=== PATIENT | male | born 1980 | race Caucasian/White ===

== ENCOUNTER → 2016-12-16 | Day surgery (SDC) | payer BC ==
[~2016-12-16] MED LIST: BUPIVACAINE/EPINEPHRINE 0.25% PF 10 ML VIAL ONE; CIPROFLOXACIN 400 MG PREMIX 200 ML ONE; KETOROLAC TROMETHAMINE 30 MG/ML (IVP) VIAL IV PUSH ONE; LACTATED RINGER'S 1000 ML INJ 1,000 ML ONE; LIDOCAINE 1%/EPINEPHrine 1:100,000 SOLN 20 ML VIAL ONE; MEPERIDINE HCL 25 MG/ML VIAL ONE; MIDAZOLAM HCL 2 MG/2 ML VIAL ONE; MORPHINE SULFATE 4 MG/ML INJ ONE; ONDANSETRON HCL 4 MG/2 ML VIAL IV PUSH ONE; PROPOFOL 200 MG/20 ML AMP IV ONE; SODIUM CHLORIDE 0.9% 250 ML ADDBAG IV ONE
--- NOTE | 2016-12-18 17:43 | MP ---
cc: CATHRYN WRIGHT M.D. DATE OF SURGERY: 12/16/2016. PREOPERATIVE DIAGNOSIS: Symptomatic reducible umbilical hernia. POSTOPERATIVE DIAGNOSIS: Symptomatic reducible umbilical hernia. OPERATIVE PROCEDURE PERFORMED: Umbilical hernia repair with mesh. SURGEON: Cathryn Wright MD. INDUSTRIAL ECONOMICS TEACHER: TRICIA Beckham. ANESTHESIA LMA. ESTIMATED BLOOD LOSS: Less than 30 mL. FLUIDS: 950 mL crystalloid. COMPLICATIONS: None. DRAINS: None. DESCRIPTION OF THE PROCEDURE IN DETAIL: The patient was taken to the operating room and placed on the operating table in the supine position. After an adequate level of laryngeal mask anesthesia was achieved, the abdomen was shaved, prepped and draped. Time-out was taken confirming the correct patient, site and procedure to be performed. The DOG GROOMER was present from the beginning to the end of the case assisting in all portions of the procedure. It was necessary to have this individual in the room to assist in the above surgical procedure. The DOG GROOMER's presence was necessary throughout the case for appropriate retraction, dissection, visualization, and resection of the important anatomical structures during the surgical procedure. The skill set of the DOG GROOMER is medically and surgically necessary to safely complete the surgical procedure. During the surgical case, the business technology teacher was working the instrument table and passing instruments to the attending surgeon and the DOG GROOMER. Skin and subcutaneous tissue was infiltrated with local anesthetic and an incision was made in a transverse fashion below the umbilicus. Dissection was carried down to the umbilical skin and a hemostat was passed behind the umbilicus including the hernia. The umbilical skin was sharply dissected off of the hernia sac in the hernia sac was then opened. An approximately 2-3 cm defect in the fascia was noted and the underlying subcutaneous fatty tissue in the preperitoneal space was dissected away from the fascia. When this had been accomplished, an 8-cm Ventralex ST Mesh was brought up and placed in the subfascial plane. The mesh was transfixed at multiple points with #0 Prolene suture. The straps were cut off the mesh at the end of the procedure and all gaps had been closed with the Prolene suture so that bowel and fat could not get around the mesh. The fascia was then closed in a vertical fashion with interrupted #1 Prolene sutures. The remaining local anesthetic was injected into the subcutaneous tissue and fascia. The umbilical skin was tacked down to the fascia with a 3-0 Vicryl suture. The wound was then closed with interrupted 3-0 Vicryl suture and the skin closed with 5-0 PDS in a running subcuticular fashion. The wound was dressed with Steri-Strips and a 4x4 and Tegaderm was applied over the umbilicus and air aspirated. An abdominal binder was applied. The patient was extubated and taken back to the recovery room in stable condition. Sponge and needle and instrument counts were reported be correct. MD LUDWIG Hein/JCC /2:00 PM /5:42 PM
== END | disposition home or self-care (01) ==
LOC: ESDC 09:03
PROVIDERS: ATTEND Surgery Trauma Surgery
DX: K42.9 Umbilical hernia without obstruction or gangrene (principal)
CPT/HCPCS: 00750; 49585; C1781; J0744; J1885; J2175; J2250; J2270; J2405; J3010; J7120